=== PATIENT | female | born 1985 | race Caucasian/White ===

== ENCOUNTER → 2016-12-27 | Outpatient (CLI) | payer BC ==
[~2016-12-27] MED LIST: ADVIN25050 INH; ALBUAER2; AZEL0.056; BNTUNK; CLR10 PO; DTR/5 PO; ESCI1TAB10 PO; ETONMIS VAGRING; FLNIN/; PRVHFAIN INH
--- NOTE | 2016-12-27 16:08 | DIAGNOSTIC IMAGING REPORT ---
FUSION CT SINUSES W/O HISTORY: J30.9 Allergic rhinitis PATIENT WITH LEFT SEPTAL DEVIATION AND BI TECHNIQUE: Multiaxial CT images of the sinuses were performed and reformatted in the coronal plane without intravenous contrast. COMPARISON STUDY: None. FINDINGS: The frontal sinuses are clear. There is moderate mucosal thickening and a small amount of bubbly secretions seen within the right maxillary sinus. There is mild mucosal thickening and a small fluid level within the left maxillary sinus. There are few partially opacified ethmoid air cells. Minimal mucosal thickening within the sphenoid sinuses. The mastoid air cells are clear. A few small areas of nodular thickening within the nasal cavity abutting the middle and inferior turbinates. These measure up to 8 mm in size and favor polyps. The visualized brain parenchyma and orbits are unremarkable. The pterygopalatine fossa are within normal limits. Left nasal septal deviation. Partial opacification of the bilateral ethmoid infundibulum. The lamina papyracea and orbital floors are intact. Small left-sided jacob bullosa. IMPRESSION: 1. Mild acute on chronic maxillary sinusitis. 2. Left nasal septal deviation. 3. A few subcentimeter soft tissue nodules within the nasal cavity abutting the turbinates. These favor polyps. Electronically signed by: Larry Lopez M.D. 12/27/2016 4:06 PM Dictated Date/Time: 12/27/2016 3:57 PM
== END | disposition home or self-care (01) ==
LOC: C.CTS 15:03
DX: J30.9 Allergic rhinitis, unspecified (principal); J34.2 Deviated nasal septum; R93.8 Abnormal findings on diagnostic imaging of other specified body structures

== ENCOUNTER → 2017-01-31 | Outpatient (CLI) | payer BC ==
[2017-01-31 18:08] LABS: BASO % 0.7 %; BASO ABS # 0.06 K/uL (0-0.2); COMPLETE YES; EOS % 6.2 %; HEMATOCRIT 44.9 % (37-47); IG% 0.3 %; LYMPH % 37.4 %; LYMPH ABS # 3.32 K/uL (1.2-3.4); MEAN CELL VOLUME 91.1 fL (80-100); MEAN CORPUSCULAR HEMOGLOBIN 30.4 pg (25-34); MEAN CORPUSCULAR HGB CONC 33.4 g/dl (32-36); MEAN PLATELET VOLUME 10.3 fL (7.4-10.4); MONO % 9.7 %; NEUT % 45.7 %; PLATELET COUNT 435 K/uL (130-400); RED BLOOD COUNT 4.93 M/uL (4.2-5.4); WHITE BLOOD COUNT 8.87 K/uL (4.8-10.8)
[2017-01-31 18:16] LABS: PARTIAL THROMBOPLASTIN RATIO 1.1; PROTHROMBIN TIME (PATIENT) 10.7 SECONDS (9.0-12.0)
[2017-01-31 18:27] LABS: POTASSIUM 3.5 mmol/L (3.5-5.1)
== END | disposition home or self-care (01) ==
LOC: C.LAB 17:28
DX: Z01.818 Encounter for other preprocedural examination (principal)

== ENCOUNTER → 2017-02-05 | Day surgery (SDC) | payer BC ==
[2017-02-01 13:50] VITALS: Ht 162.6 cm; Wt 61.4 kg
[~2017-02-05] VITALS: Ht 162.6 cm; Wt 61.4 kg
[~2017-02-05] MED LIST changes: -ALBUAER2; +ATROPINE SULFATE 0.1 MG/ML 5ML SYR IV PRN; -BNTUNK; +CLINDAMYCIN PHOS 150 MG/ML 2 ML VIAL IV SCH; +DEXAMETHASONE SOD INJ 4 MG/ML VIAL ONE; +EpINEphrine INJ 1MG/ML AMP 1 MG/ML AMP ONE; +FENTANYL CITRATE INJ 50 MCG/1 ML 2 ML VIAL IV PRN; +FENTANYL CITRATE INJ 50 MCG/1 ML 2 ML VIAL ONE; +HYDROCODONE/ACETAMOPHEN 5/325MG TAB PO PRN; +LACTATED RINGER'S 1000ML 1,000 ML IV SCH; +LACTATED RINGER'S 1000ML 500 ML IV SCH; +LIDOCAINE 4% MPF SOAK 5 ML = 1 DOSE TOP ONE; +LIDOCAINE HCL 2% 2 ML VIAL (20MG/ML) ONE; +LIDOCAINE/EPINEPHRINE 1% INJ 50 ML VIAL ONE; +MIDAZOLAM HCL 1 MG/ML 2ML VIAL ONE; +ONDANSETRON INJ 2 MG/ML 2 ML VIAL IV PRN; +ONDANSETRON INJ 2 MG/ML 2 ML VIAL ONE; +OXYMETAZOLINE HCL 0.05% NA SPR 15 ML BTL PRN; +OXYMETAZOLINE HCL 0.05% NA SPR 15 ML BTL SCH; +PROMETHAZINE HCL INJ 12.5 MG in SODIUM CHLORIDE 0.9% 50ML 50 ML IV PRN; +PROPOFOL IV EMULSION 10 MG/ML 20 ML VIAL IV ONE; +ROCURONIUM BROMIDE 10 MG/ML 5 ML VIAL ONE; +SCOPOLAMINE 1.5 MG TDSY TD ONE
--- NOTE | 2017-02-05 12:24 | History & Physical Bridge - SC ---
H&P Re-Evaluation Bridge Note: I have examined the patient, reviewed the History & Physical and in the interval since the performance of the History & Physical I have noted the following changes of clinical significance: No changes noted
--- NOTE | 2017-02-05 13:55 | [facility] Operative Report ---
Operative Report Operative Date February 05, 2017. Pre-Operative Diagnosis Chronic Sinusitis, Nasal Septal Deviation, Hypertrophy of Both Inferior Nasal Turbinates Post-Operative Diagnosis Same Procedure(s) Performed Image Guided Bilateral Endoscopic Sinus Surgery, Septoplasty, Bilateral Inferior Turbinate Outfracture and Turbinoplasty Surgeon Dr. Coffman Mine Patrol Surgeon(s) None Estimated Blood Loss 20 ML Findings 1. LEFT NAHEED BULLOSA 2. MODERATELY SEVERE L DNS 3. R>L ITH 4. PURULENCE WITHIN L MAXILLARY SINUS 5. POLYPS WITHIN BILATERAL ETHMOID SINUSES 6. MILD MUCOSAL THICKENING OF R SPHENOID SINUS Specimens None I attest to the content of the Intraoperative Record and any orders documented therein. Any exceptions are noted below.
--- NOTE | 2017-02-05 13:56 | Discharge Instructions ---
Discharge Instructions Date of Service February 05, 2017. Admission Reason for Admission: Chronic Sinusitis Discharge Discharge Diagnosis / Problem: SAME Discharge Goals Goal(s): Therapeutic intervention Activity Recommendations Activity Limitations: as noted below 1. LIGHT ACTIVITY AND NO NOSE BLOWING FOR 2WEEKS 2. NO DRIVING WHILE ON NORCO . Current Hospital Diet Patient's current hospital diet: Discharge Diet Recommended Diet: Regular Diet Procedures Procedures Performed: Image Guided Bilateral Endoscopic Sinus Surgery, Septoplasty, Bilateral Inferior Turbinate Outfracture and Turbinoplasty Pending Studies Studies pending at discharge: no Medical Emergencies . Who to Call and When: Medical Emergencies: If at any time you feel your situation is an emergency, please call 911 immediately. . Non-Emergent Contact Non-Emergency issues call your: Surgeon . . "Provider Documentation" section prepared by Brandyn Coffman. . VTE Core Measure Inpt VTE Proph given/why not?: SCD's, Treatment not indicated
[2017-02-05 14:34] VITALS: TEMP 37.2
[2017-02-05 15:07] VITALS: BP 133/93; PULSE 92; O2SAT 98
--- NOTE | 2017-02-05 15:12 | Anesthesia Progress Nt - [facility] ---
Anesthesia Post Op Note Date & Time February 05, 2017 at 15:12 Vital Signs Pain Intensity: 0 Vital Signs Past 12 Hours Date Time Temp Pulse Resp B/P Pulse Ox O2 Delivery O2 Flow Rate FiO2 02/05/17 15:07 92 16 133/93 98 Room Air 02/05/17 14:34 37.2 92 16 131/91 99 Room Air 02/05/17 14:30 99 20 100 02/05/17 14:27 37.5 02/05/17 14:26 149/91 02/05/17 14:25 96 15 02/05/17 14:25 96 15 100 02/05/17 14:20 109 22 02/05/17 14:20 110 22 141/94 100 02/05/17 14:17 147/98 02/05/17 14:16 160/98 02/05/17 14:15 103 14 100 02/05/17 14:15 104 14 02/05/17 14:11 153/107 02/05/17 14:10 108 22 02/05/17 14:10 107 22 100 02/05/17 14:05 123 16 02/05/17 14:05 125 16 147/101 99 02/05/17 14:01 161/95 02/05/17 14:00 36.7 110 18 159/109 100 Humidified Oxygen 8 Diffusion Mask 02/05/17 14:00 114 159/109 100 02/05/17 14:00 114 02/05/17 10:26 36.9 90 18 118/87 97 Room Air Notes Mental Status: alert / awake / arousable, participated in evaluation Pt Amnestic to Procedure: Yes Nausea / Vomiting: adequately controlled Pain: adequately controlled Airway Patency, RR, SpO2: stable & adequate BP & HR: stable & adequate Hydration State: stable & adequate Anesthetic Complications: no major complications apparent
--- NOTE | 2017-02-05 15:55 | OPERATIVE REPORT ---
DATE OF OPERATION: 02/05/2017 PREOPERATIVE DIAGNOSES: 1. Chronic rhinosinusitis. 2. Left septal deviation. 3. Right greater than left inferior turbinate hypertrophy. POSTOPERATIVE DIAGNOSES: 1. Chronic rhinosinusitis. 2. Left septal deviation. 3. Right greater than left inferior turbinate hypertrophy. PROCEDURES: 1. Image-guided Medtronic fusion bilateral endoscopic sinus surgery consisting of: 1. Left endoscopic jacob bullosa resection. 2. Bilateral maxillary antrostomies. 3. Bilateral complete ethmoidectomies. 4. Right sphenoidotomy. 5. Septoplasty. 6. Bilateral inferior turbinate outfracture and turbinoplasty. SURGEON: Dr. Coffman. ANESTHESIA: General endotracheal. ESTIMATED BLOOD LOSS: 20 mL. FINDINGS: 1. Severe left septal deviation with both cartilaginous and bony deviation. 2. Right greater than left inferior turbinate hypertrophy. 3. Left middle turbinate jacob bullosa. 4. Polyps within the bilateral maxillary sinuses. 5. Purulence within the left maxillary sinus. 6. Mild mucosal thickening involving the right sphenoid sinus. SPECIMENS: None. COMPLICATIONS: None. INDICATIONS FOR THE PROCEDURE: The patient is a 31-year-old female with a history of chronic rhinosinusitis which has been unresponsive to maximum medical therapy. Posttreatment CT scan of the sinuses revealed bilateral maxillary, ethmoid, right sphenoid sinusitis along with left septal deviation, right greater than left inferior turbinate hypertrophy, and a left jacob bullosa. She presents for the above-mentioned procedures on an outpatient elective basis. DESCRIPTION OF PROCEDURE: After informed consent had been obtained from the patient, the patient was wheeled to the operating room and placed on the operating table in the supine position. Monitors were placed. After induction of general endotracheal anesthesia, the patient was prepped in usual fashion for image guided endoscopic sinus surgery. The [employer] navigation headset was placed over the forehead and was registered, verified and calibrated and used for the sphenoid sinus portion of the procedure primarily. Lidocaine and epinephrine pledgets were placed in the bilateral middle meati. The left pledget was removed first. A freer elevator was used to medialize the left middle turbinate. The left middle turbinate and lateral nasal wall were then injected with 1% lidocaine with 1:100,000 epinephrine. The pledget was replaced in the left middle meatus. The right side was then addressed in a similar fashion. The left-sided pledget was removed. A sickle knife was used to incise the left middle turbinate longitudinally and the lateral half of the middle turbinate was removed in order to perform an endoscopic jacob bullosa resection. An uncinatectomy was then performed using a freer elevator, straight Genaro-Cut forceps, and powered instrumentation. The natural ostium of the left maxillary sinus was identified and this was enlarged anteriorly, inferiorly, and posteriorly using backbiting forceps and powered instrumentation. An endoscopic complete ethmoidectomy was then performed using powered instrumentation. Intraoperative findings were purulence within the left maxillary sinus as well as polyposis within the anterior and posterior ethmoid sinus on the left hand side. A lidocaine and epinephrine pledget was then placed into the left ethmoid cavity. The right side was then addressed in a similar fashion except there was no jacob bullosa resection done on this side. A transnasal approach to the sphenoid sinus was then undertaken and using image guidance, a straight Arias suction was inserted into the right sphenoid sinus ostia. The sphenoid sinus ostia was enlarged medially and inferiorly using powered instrumentation under image guidance. There was mild mucosal thickening within the right sphenoid sinus and then similarly there was polyposis within the right ethmoid sinuses anteriorly and posteriorly. There was no purulence noted. All of the pledgets were then removed. The nasal septum was injected with 1% lidocaine with 1:100,000 epinephrine. A #15 scalpel was used to make a left hemitransfixion incision through which the left-sided mucoperichondrial and mucoperiosteal flap was elevated. A #15 scalpel was then used to incise the quadrangular cartilage with care to preserve a 1.5 cm dorsal and caudal strut and the right-sided mucoperichondrial and mucoperiosteal flap was elevated through this cartilaginous incision. A Jairo silver knife was then used to remove the deviated portions of the quadrangular cartilage which was impinging on the airway anteriorly on the left hand side. A V shaped osteotome, mallet, and Kiarra forceps was then used to remove a large bony septal spur which was impinging on the airway posteriorly on the left hand side. The septal cavity was then suctioned. The left hemitransfixion incision was closed with several simple interrupted 4-0 chromic sutures. A 4-0 plain gut suture on a Kaushik needle was then used to perform a quilting stitch of the mucoperichondrial and mucoperiosteal flaps bilaterally to help prevent septal hematoma. A Melchor elevator was then used to infracture and subsequently outfracture the inferior turbinates bilaterally. Inferior turbinates were injected with 1% lidocaine with 1:100,000 epinephrine. A 2.0 mm turbinate blade using powered instrumentation was then used to perform bilateral inferior turbinoplasties in a submucosal fashion. The sinonasal cavities and nasopharynx were then suctioned. Merogel was then placed into the bilateral ethmoid sinuses/middle meati. An orogastric tube was placed and the stomach was suctioned free of air and stomach contents. This marked the end of the case. The patient tolerated the procedure well and there were no apparent complications. The patient was extubated and transferred to recovery room in stable condition. I attest to the content of the Intraoperative Record and any orders documented therein. Any exceptio ns are noted below.
== END | disposition home or self-care (01) ==
LOC: X.SURG 10:10
DX: J32.0 Chronic maxillary sinusitis (principal); J32.2 Chronic ethmoidal sinusitis; J32.3 Chronic sphenoidal sinusitis; J34.2 Deviated nasal septum; J34.3 Hypertrophy of nasal turbinates; J33.9 Nasal polyp, unspecified; J45.909 Unspecified asthma, uncomplicated

== ENCOUNTER → 2017-11-01 | Outpatient (CLI) | payer OTHER ==
[~2017-11-01] MED LIST changes: -ATROPINE SULFATE 0.1 MG/ML 5ML SYR IV PRN; -CLINDAMYCIN PHOS 150 MG/ML 2 ML VIAL IV SCH; -DEXAMETHASONE SOD INJ 4 MG/ML VIAL ONE; -EpINEphrine INJ 1MG/ML AMP 1 MG/ML AMP ONE; -FENTANYL CITRATE INJ 50 MCG/1 ML 2 ML VIAL IV PRN; -FENTANYL CITRATE INJ 50 MCG/1 ML 2 ML VIAL ONE; -FLNIN/; -HYDROCODONE/ACETAMOPHEN 5/325MG TAB PO PRN; -LACTATED RINGER'S 1000ML 1,000 ML IV SCH; -LACTATED RINGER'S 1000ML 500 ML IV SCH; -LIDOCAINE 4% MPF SOAK 5 ML = 1 DOSE TOP ONE; -LIDOCAINE HCL 2% 2 ML VIAL (20MG/ML) ONE; -LIDOCAINE/EPINEPHRINE 1% INJ 50 ML VIAL ONE; -MIDAZOLAM HCL 1 MG/ML 2ML VIAL ONE; -ONDANSETRON INJ 2 MG/ML 2 ML VIAL IV PRN; -ONDANSETRON INJ 2 MG/ML 2 ML VIAL ONE; -OXYMETAZOLINE HCL 0.05% NA SPR 15 ML BTL PRN; -OXYMETAZOLINE HCL 0.05% NA SPR 15 ML BTL SCH; -PROMETHAZINE HCL INJ 12.5 MG in SODIUM CHLORIDE 0.9% 50ML 50 ML IV PRN; -PROPOFOL IV EMULSION 10 MG/ML 20 ML VIAL IV ONE; -ROCURONIUM BROMIDE 10 MG/ML 5 ML VIAL ONE; -SCOPOLAMINE 1.5 MG TDSY TD ONE
[2017-11-01 17:35] LABS: HEMATOCRIT 41.1 % (37-47); HEMOGLOBIN 14.2 g/dL (12.0-16.0); MEAN CELL VOLUME 91.1 fL (80-100); MEAN CORPUSCULAR HEMOGLOBIN 31.5 pg (25-34); MEAN CORPUSCULAR HGB CONC 34.5 g/dl (32-36); MEAN PLATELET VOLUME 10.5 fL (7.4-10.4); PLATELET COUNT 353 K/uL (130-400); RED CELL DISTRIBUTION WIDTH CV 12.5 % (11.5-14.5); RED CELL DISTRIBUTION WIDTH SD 41.8 fL (36.4-46.3)
[2017-11-01 18:04] LABS: BLOOD UREA NITROGEN 8 mg/dl (7-18); CALCIUM 9.4 mg/dl (8.5-10.1); CARBON DIOXIDE 27 mmol/L (21-32); CREATININE 0.73 mg/dl (0.60-1.20); GLUCOSE 80 mg/dl (70-99); POTASSIUM 3.6 mmol/L (3.5-5.1); SODIUM 137 mmol/L (136-145)
== END | disposition home or self-care (01) ==
LOC: C.LAB1850 16:29
PROVIDERS: ATTEND Internal Medicine
DX: Z13.220 Encounter for screening for lipoid disorders (principal); F32.9 Major depressive disorder, single episode, unspecified

== ENCOUNTER → 2017-11-27 | Outpatient (CLI) | payer OTHER | END | disposition home or self-care (01) | LOC: C.LAB1850 07:11 | PROVIDERS: ATTEND Internal Medicine | DX: F32.9 Major depressive disorder, single episode, unspecified (principal); Z13.220 Encounter for screening for lipoid disorders ==

== ENCOUNTER 2019-07-12 01:17 | Inpatient (IN) ==
[2019-07-12] MEDS ORDERED: methylPREDNISolone 125 MG/2 ML VIAL IV STA (01:34)
[2019-07-12] MEDS ORDERED: MAGNESIUM SULFATE / D5W 1 GM/100 ML BAG IV ONE (01:34)
[2019-07-12] MEDS ORDERED: ALBUT/IPRATROP 3MG/0.5MG NEB 3 ML VIAL NEB ONE ×2 (01:34→06:08)
[2019-07-12] MEDS ORDERED: LORazepam 0.25 MG/0.5 ML VIAL IV STA (02:06)
[2019-07-12] MEDS ORDERED: SODIUM CHLORIDE 0.9% 1000ML 1,000 ML IV SCH (02:15)
[2019-07-12 05:10] LABS: Hematocrit (blood only) 38.3 % (37-47); Hemoglobin 12.6 g/dL (12.0-16.0); Mean Corpuscular Hemoglobin 31.3 pg (25-34); Mean Corpuscular Hgb Conc 32.9 g/dL (32-36); Mean Corpuscular Volume 95.3 fL (80-100); Mean Platelet Volume 10.8 fL (7.4-10.4); Platelet Count 398 K/uL (130-400); RDW Coefficient of Variation 12.7 % (11.5-14.5); RDW Standard Deviation 43.8 fL (36.4-46.3); Red Blood Count 4.02 M/uL (4.2-5.4); White Blood Count 13.23 K/uL (4.8-10.8)
[2019-07-12 05:15] LABS: D Dimer 220 ug/L FEU (0-500)
[2019-07-12 05:19] LABS: Alanine Aminotransferase 14 U/L (12-78); Albumin Level 3.2 gm/dl (3.4-5.0); Aspartate Aminotransferase 7 U/L (15-37); BUN Creatinine Ratio 8.2 (10-20); Blood Urea Nitrogen 7 mg/dl (7-18); Calcium 8.4 mg/dl (8.5-10.1); Carbon Dioxide 23 mmol/L (21-32); Chloride 109 mmol/L (98-107); Creatinine Clr Calc Pharmacy 89.5 ml/min; Est GFR (African American) 99.4; Est GFR (Non-African American) 85.7; Glucose 100 mg/dl (70-99); Potassium 3.4 mmol/L (3.5-5.1); Sodium 139 mmol/L (136-145)
[2019-07-12 05:23] LABS: Albumin Globulin Ratio 0.8 (0.9-2); Alkaline Phosphatase 114 U/L (45-117); Bilirubin,Total 0.2 mg/dl (0.2-1); Globulin 3.8 gm/dl (2.5-4.0); Troponin I < 0.015 ng/ml (0-0.045)
[2019-07-12] MEDS ORDERED: ALBUT/IPRATROP 3MG/0.5MG NEB 3 ML VIAL NEB STA (05:26)
[2019-07-12 05:31] LABS: ALC (manual) 4.76 K/uL (1.2-3.4); ANC (manual) 6.62 K/uL (1.4-6.5); Basophils # (manual) 0.24 K/uL (0-0.2); Basophils % (manual) 1.8 %; Eosinophils # (manual) 0.81 K/uL (0-0.5); Eosinophils % (manual) 6.1 %; Lymphocytes # (manual) 4.76 K/uL (1.2-3.4); Monocytes # (manual) 0.81 K/uL (0.11-0.59); Monocytes % (manual) 6.1 %; Neutrophils # (manual) 6.62 K/uL (1.4-6.5)
--- NOTE | 2019-07-12 06:52 | XRay Report ---
XR chest 1V portable CLINICAL HISTORY: sob dyspnea COMPARISON STUDY: 06/07/2019 FINDINGS: The bones soft tissues and hemidiaphragms are normal. The cardiomediastinal silhouette is n ormal. The lungs are clear. The pulmonary vasculature is normal. IMPRESSION: Negative chest. The above report was generated using voice recognition software. It may contain grammatical, syntax or spelling errors. Electronically signed by: Tai Owen M.D. 07/12/2019 6:50 AM
[2019-07-12] MEDS ORDERED: ACETAMINOPHEN 325 MG TAB PO PRN (08:39)
[2019-07-12] MEDS ORDERED: NICOTINE 14 MG/24 HR PATCH TD SCH (09:00)
[2019-07-12] MEDS: ALBUT/IPRATROP 3MG/0.5MG NEB 3 ML VIAL NEB SCH ×4 (10:54→23:11)
[2019-07-12] MEDS: DULOXETINE HCL 60 MG CAP PO SCH (11:21)
[2019-07-12] MEDS: OXYBUTYNIN CHLORIDE 5 MG TAB PO SCH ×2 (11:21→20:52)
[2019-07-12] MEDS: DULOXETINE HCL 30 MG CAP PO SCH (11:21)
[2019-07-12] MEDS: LORATADINE 10 MG TAB PO SCH (11:22)
[2019-07-12] MEDS: FLUTICASONE/SALMETEROL 250/50 (ADVAIR) 14 PUFF/1 INHALER INH SCH ×2 (11:22→20:52)
[2019-07-12] MEDS: methylPREDNISolone 40 MG in SYRINGE 0 ML IV SCH (13:22)
--- NOTE | 2019-07-12 17:46 | History & Physical Report ---
Date of Service July 12, 2019 Assessment & Plan (1) Asthma exacerbation: Due to smoking/vaping and not being on any maintenance medication. - Steroids - DuoNebs standing and PRN - Hold abx given clear CXR - BiPap PRN, though she has not needed it since coming from the ED - Restart home inhaler to give to her on discharge - Loratadine - CM for financial assistance (2) Tachycardia: Sinus tachycardia due to anxiety and albuterol. - Monitor (3) Bipolar 1 disorder: No SI/HI at present. - Continue home meds (4) DVT prophylaxis: SCDs - Low DVT risk per admission calculator History of Present Illness Primary Care Provider: Ori Lira MD 34yo F w/ hx of asthma and bipolar who presents with asthma exacerbation. She reports she has had a gradually increasing asthma exacerbation for at least 3-4 days, but that it got significantly worse at 9pm last night. At baseline, she uses her nebulizer 3-4 times per day, but after 9pm was using it almost every hour without relief of her asthma. In the ED, she had 2 hour-long treatments and was put on BiPap with improvement of her symptoms. She denies any sick contacts, denies any new cats/dogs exposure, denies any change in living arrangements. However, she does admit that she smokes 1- 2x/month and also vapes 1-2x/month when she is socializing with friends and that she did this at the beginning of her asthma exacerbation a few days ago. Additionally, she reports she cannot afford her Advair and has not been taking any maintenance asthma medication. She does not have a marketing recruiter; just using her PCP for her asthma care. Reports no fevers/chills, chest pain, abdominal pain, nausea, or vomiting. Allergies Allergy/AdvReac Type Severity Reaction Status Date / Time Penicillins Allergy Intermediate RASH Verified 07/12/19 02:12 Sulfa (Sulfonamide Allergy Intermediate RASH Verified 07/12/19 02:12 Antibiotics) morphine Allergy Mild RASH Verified 07/12/19 02:12 sertraline [From Zoloft] Allergy Unknown Verified 07/12/19 02:12 amoxicillin AdvReac Intermediate RASH Verified 07/12/19 02:12 Home Medications Home Medications Medication Instructions Recorded Confirmed Type albuterol sulfate [Ventolin HFA] 2 puff INHALATION DIRECTED PRN 02/01/17 07/12/19 History #0 azelastine 2 spray INTRANASAL HS #0 02/01/17 07/12/19 History etonogestrel-ethinyl estradiol 1 vag ring PV DIRECTED #1 ea 04/08/19 07/12/19 History 0.12 mg -0.015 mg/24 hr vaginal ring loratadine 10 mg tablet 10 mg PO DAILY tab 04/08/19 07/12/19 History risperidone 1 mg tablet 2 mg PO HS #60 tab 04/08/19 07/12/19 History oxybutynin chloride 5 mg tablet 5 mg PO BID #60 tab 05/02/19 07/12/19 Rx albuterol sulfate 1.25 mg INH DIRECTED PRN 06/07/19 07/12/19 History clonazepam 1 mg PO HS 06/07/19 07/12/19 History duloxetine 30 mg PO DAILY 06/07/19 07/12/19 History duloxetine 60 mg PO DAILY 06/07/19 07/12/19 History Past Med/Surg History Medical History Abnormal weight gain Subjective tinnitus Hyperhidrosis Bipolar 1 disorder Asthma Allergic rhinitis Acne History of anxiety History of chicken pox History of chronic constipation History of pelvic mass Surgical History H/O sinus surgery History of knee surgery S/P nasal surgery S/P wisdom tooth extraction Family History Mother Endometriosis Family/Other Asthma Hypertension Stroke Social History Preferred Language: Greek Communication Ability: Effective Beliefs That Will Affect Care: None Current Living Situation: Alone Other Information That Helps Us Care for You: No Feels Safe at Home: Yes Safety Concerns: Feels Safe At This Time Smoking Status: Never smoker Tobacco Type: e-cigarettes ; Do You Dip or Chew Tobacco: No ; Hx Alcohol Use: Yes Alcohol type: beer, wine and hard liquor Hx Substance Use: Yes substance use type: marijuana Last Used Substance: Days (ago) Last Used Substance Other:: 07/11/19 Dental Care, Regularly: Yes Physical Activity Frequency: Does not Exercise Seatbelt Use: always Sunscreen Use: Yes Review of Systems Review of Systems: All systems reviewed & are unremarkable except as noted in HPI & below Physical Exam Constitutional: WD/WN, vitals as above Eyes: EOM intact bilaterally; no conjunctival abnormality ENMT: external ear and nose normal, oropharynx normal Neck: trachea midline, no thyromegaly normal visual inspection Respiratory: + respiratory distress, + labored breathing and + tachypneic; no cough Auscultation: + wheezes (Inspiratory and expiratory) Cardiovascular: Rate/Rhythm: regular rhythm and + tachycardic Heart Sounds: normal S1 and normal S2 Vessels: no JVD Extremities: no edema Gastrointestinal (Abdomen): Inspection/Auscultation: abdomen normal to inspection; abdomen not distended Musculoskeletal: no cyanosis or clubbing, extremities motor strength 5/5 Skin: no rashes, warm and dry Neurologic: moves all extremities and awake Psychiatric: Orientation: alert, oriented to person and cooperative Results & Data Vital Signs (Past 12 Hours) Vital Signs Temp Pulse Pulse Resp BP BP BP 07/12/19 16:26 121 H 07/12/19 15:28 36.9 C 102 H 19 142/85 H 07/12/19 15:25 115 H 18 07/12/19 10:58 36.9 C 122 H 30 H 117/71 07/12/19 10:54 124 H 22 07/12/19 08:40 37 C 126 H 22 123/82 07/12/19 08:00 126 H 22 130/81 07/12/19 07:30 127 H 24 129/86 07/12/19 07:01 126 H 19 07/12/19 07:00 123 H 18 124/72 07/12/19 06:39 120 H 16 122/83 07/12/19 06:38 119 H 15 122/83 07/12/19 06:35 122 H 15 07/12/19 06:30 122 H 14 07/12/19 06:10 124 H 15 07/12/19 06:00 128 H 24 07/12/19 05:40 118 H 24 Pulse Ox 07/12/19 16:26 07/12/19 15:28 98 07/12/19 15:25 98 07/12/19 10:58 96 07/12/19 10:54 87 L 07/12/19 08:40 98 07/12/19 08:00 93 07/12/19 07:30 98 07/12/19 07:01 99 07/12/19 07:00 97 07/12/19 06:39 99 07/12/19 06:38 99 07/12/19 06:35 100 07/12/19 06:30 98 07/12/19 06:10 99 07/12/19 06:00 95 07/12/19 05:40 92 PG Care Time/CCT Total # of Minutes Spent Total Time Spent with Patient: Total time spent is greater than 50% in coordination of care (as documented) at patient's floor/unit and/or counseling patient: (1) Asthma exacerbation Asthma persistence: persistent Asthma severity: unspecified severity Qualified Code(s): J45.901 - Unspecified asthma with (acute) exacerbation
[2019-07-12] MEDS ORDERED: guaiFENesin 600 MG TABCR PO STA (20:10)
[2019-07-12] MEDS ORDERED: BENZONATATE 100 MG CAPSULE PO ONE (20:12)
[2019-07-12] MEDS ORDERED: clonazePAM 1 MG TAB PO SCH (21:00)
[2019-07-12] MEDS ORDERED: risperiDONE 2 MG TABLET PO SCH (21:00)
[2019-07-12] MEDS: BENZONATATE 100 MG CAPSULE PO SCH (21:01)
[2019-07-12] MEDS: FLUTICASONE PROPIONATE NA SPR 16 GM BTL SCH (22:52)
[2019-07-13] MEDS: methylPREDNISolone 40 MG in SYRINGE 0 ML IV SCH ×2 (02:32→13:48)
[2019-07-13] MEDS: ALBUT/IPRATROP 3MG/0.5MG NEB 3 ML VIAL NEB SCH ×2 (03:07→07:12)
[2019-07-13 06:12] LABS: Hematocrit (blood only) 35.7 % (37-47); Hemoglobin 11.8 g/dL (12.0-16.0); Mean Corpuscular Hemoglobin 31.3 pg (25-34); Mean Corpuscular Hgb Conc 33.1 g/dL (32-36); Mean Corpuscular Volume 94.7 fL (80-100); Mean Platelet Volume 10.5 fL (7.4-10.4); Platelet Count 387 K/uL (130-400); RDW Standard Deviation 45.2 fL (36.4-46.3); Red Blood Count 3.77 M/uL (4.2-5.4)
[2019-07-13 06:56] LABS: BUN Creatinine Ratio 11.4 (10-20); Calcium 8.8 mg/dl (8.5-10.1); Est GFR (African American) 118.6; Est GFR (Non-African American) 102.3; Magnesium 2.1 mg/dl (1.8-2.4)
[2019-07-13 06:58] LABS: Phosphorus 2.7 mg/dl (2.5-4.9)
[2019-07-13] MEDS: DULOXETINE HCL 30 MG CAP PO SCH (08:07)
[2019-07-13] MEDS: LORATADINE 10 MG TAB PO SCH (08:07)
[2019-07-13] MEDS: OXYBUTYNIN CHLORIDE 5 MG TAB PO SCH (08:07)
[2019-07-13] MEDS: DULOXETINE HCL 60 MG CAP PO SCH (08:07)
[2019-07-13] MEDS: FLUTICASONE PROPIONATE NA SPR 16 GM BTL SCH (08:08)
[2019-07-13] MEDS: FLUTICASONE/SALMETEROL 250/50 (ADVAIR) 14 PUFF/1 INHALER INH SCH (08:08)
[2019-07-13] MEDS: BENZONATATE 100 MG CAPSULE PO SCH ×2 (08:29→13:49)
[2019-07-13] MEDS ORDERED: guaiFENesin 600 MG TABCR PO SCH (09:00)
[2019-07-13] MEDS ORDERED: ALBUT/IPRATROP 3MG/0.5MG NEB 3 ML VIAL NEB ONE (13:00)
--- NOTE | 2019-07-13 17:28 | Discharge Summary ---
Date of Service July 13, 2019 Admission HPI Per Admitting Provider 34yo F w/ hx of asthma and bipolar who presents with asthma exacerbation. She reports she has had a gradually increasing asthma exacerbation for at least 3-4 days, but that it got significantly worse at 9pm last night. At baseline, she uses her nebulizer 3-4 times per day, but after 9pm was using it almost every hour without relief of her asthma. In the ED, she had 2 hour-long treatments and was put on BiPap with improvement of her symptoms. She denies any sick contacts, denies any new cats/dogs exposure, denies any change in living arrangements. However, she does admit that she smokes 1- 2x/month and also vapes 1-2x/month when she is socializing with friends and that she did this at the beginning of her asthma exacerbation a few days ago. Additionally, she reports she cannot afford her Advair and has not been taking any maintenance asthma medication. She does not have a media operator; just using her PCP for her asthma care. Reports no fevers/chills, chest pain, abdominal pain, nausea, or vomiting. Principal Diagnosis Asthma exacerbation Discharge Exam Constitutional WD/WN, vitals as above Eyes EOM intact bilaterally; no conjunctival abnormality ENMT external ear and nose normal, oropharynx normal Neck trachea midline, no thyromegaly normal visual inspection Respiratory + respiratory distress, + labored breathing and + tachypneic; no cough Auscultation: no wheezes (Inspiratory and expiratory) Cardiovascular Rate/Rhythm: regular rhythm and + tachycardic Heart Sounds: normal S1 and normal S2 Vessels: no JVD Extremities: no edema Gastrointestinal (Abdomen) Inspection/Auscultation: abdomen normal to inspection; abdomen not distended Musculoskeletal no cyanosis or clubbing, extremities motor strength 5/5 Skin no rashes, warm and dry Neurologic moves all extremities and awake Psychiatric Orientation: alert, oriented to person and cooperative Discharge Data Allergies Allergy/AdvReac Type Severity Reaction Status Date / Time Penicillins Allergy Intermediate RASH Verified 07/12/19 02:12 Sulfa (Sulfonamide Allergy Intermediate RASH Verified 07/12/19 02:12 Antibiotics) morphine Allergy Mild RASH Verified 07/12/19 02:12 sertraline [From Zoloft] Allergy Unknown Verified 07/12/19 02:12 amoxicillin AdvReac Intermediate RASH Verified 07/12/19 02:12 Consultations 07/12/19 07:44 ED Decision to Admit Stat 07/12/19 08:39 Consult Case Management - Discharge Planning Routine 07/12/19 09:16 Consult Behavioral Health Liaison Routine Hospital Course (1) Asthma exacerbation: Due to smoking/vaping and not being on any maintenance medication. - Significantly improved by 07/13 and patient requested to go home. - Discharged on steroids x 5 more days. CM assisted with Advair which was able to be discounted down to $43/month which the patient thought was reasonable. Follow up with PCP. Consider pulm follow up outpatient. (2) Tachycardia: Sinus tachycardia due to anxiety and albuterol. - Improved by discharge. (3) Bipolar 1 disorder: No SI/HI at present. - Continue home meds (4) DVT prophylaxis: SCDs - Low DVT risk per admission calculator Total Time Total Time Spent Total Time Spent (In Minutes): 35 Discharge Plan Discharge Items Patient Disposition: Home - Self-Care Reason For Visit: ASTHMA EXACERBATION Discharge Diagnosis: Same Activity: Resume your previous activity Non-emergency contact: Primary Care Provider Call non-emergency contact if: your symptoms worsen and your temperature is above 101.5 Follow-up/Referrals: Ori Lira MD [Primary Care Provider] - Diet: Regular Addtl Attending Provider Instructions: Please take your first steroid dose tomorrow morning. Then every morning after that until gone. Follow up with your PCP in 1-2 weeks. If you are using your nebulizer or "rescue" inhaler more than 1-2 times per week, please see Dr. Lira to discuss other medications for your asthma. Pending Studies at Discharge: No Stand-Alone Forms: My [facility] Medications and DC Order Prescriptions: New fluticasone propion-salmeterol [Advair Diskus] 250-50 mcg/dose Blister With Device 1 puffs inhalation BID Qty: 60 RF: 1 prednisone 50 mg tablet 50 mg PO DAILY 5 Days Qty: 5 RF: 0 albuterol sulfate 90 mcg/actuation HFA aerosol inhaler 2 puffs INH Q6H PRN (Reason: shortness of breath or wheezing) Qty: 6.7 RF: 0 Continued azelastine 137 mcg (0.1 %) Aerosol,[place] 2 spray INTRANASAL HS Qty: 0 RF: 0 oxybutynin chloride 5 mg tablet 5 mg PO BID Qty: 60 RF: 5 loratadine 10 mg tablet 10 mg PO DAILY RF: 0 risperidone 1 mg tablet 2 mg PO HS Qty: 60 RF: 0 etonogestrel-ethinyl estradiol 0.12-0.015 mg/24 hr ring 1 vag ring PV DIRECTED Qty: 1 RF: 0 clonazepam 0.5 mg tablet 1 mg PO HS RF: 0 duloxetine 30 mg capsule,delayed release(DR/EC) 30 mg PO DAILY RF: 0 duloxetine 60 mg capsule,delayed release(DR/EC) 60 mg PO DAILY RF: 0 albuterol sulfate 2.5 mg /3 mL (0.083 %) solution for nebulization 1.25 mg INH DIRECTED PRN (Reason: shortness of breath or wheezing) RF: 0 Discharge Orders: Discharge Order (Routine); Ordered 07/13/19 Ordered By: Tim York/Other Patient Handouts: Asthma, Triggers Asthma, Asthma Action Plan Admission Data Admit Date/Time: 07/12/19 07:45 Attending Provider: Tim Villasenor Admit Provider: Tim Villasenor Primary Care Provider: Ori Lira Other Providers: Tim Villasenor Other Interventions: Discharge Summary Assessment (RN) Last Done: 07/13/19 13:53 DC Date/Time DO NOT enter until pt leaves facility: 07/13/19 14:17
--- NOTE | 2019-07-14 01:35 | Emergency Department Note ---
Entered by Miguel Pretty acting as a scribe for Lashawn José DO History of Present Illness General Chief complaint: Asthma Stated complaint: ASHTHMA ATTACK Time Seen by Provider: 07/12/19 01:34 Source: patient History of Present Illness Onset (ago): hour(s) (prior to arrival) Location: mouth (asthma) Pain Consistency: + other (worsening) Maximum Pain Intensity: 9 Relieved By: + none Associated symptoms: + denies other symptoms (stuffy nose, runny nose) and + cough (with phlegm production); no fever/chills The patient is a 34 year old F who presents to the Emergency Room with complaints of worsening asthma that started prior to arrival. The patient states that she tried 4 home medications and a rescue inhaler to no relief. She states that her seasonal allergies trigger her asthma. She notes that she was hospitalized due to her asthma when she was younger, but adds that she got better as she grew up. She states that she was in the ED, a month ago, due to her asthma. She notes that she has never had magnesium before, but adds that she is usually put on steroids. She state that she is currently experiencing coughing with phlegm production. She denies experiencing a fever, stuffy nose, and a runny nose. She denies being around anybody sick. She notes that she has a history of mental health issues. She adds that her father and sister also had asthma. Home Medications Home Medications Medication Instructions Recorded Confirmed Type azelastine 2 spray INTRANASAL HS #0 02/01/17 07/12/19 History etonogestrel-ethinyl estradiol 1 vag ring PV DIRECTED #1 ea 04/08/19 07/12/19 History 0.12 mg -0.015 mg/24 hr vaginal ring loratadine 10 mg tablet 10 mg PO DAILY tab 04/08/19 07/12/19 History risperidone 1 mg tablet 2 mg PO HS #60 tab 04/08/19 07/12/19 History oxybutynin chloride 5 mg tablet 5 mg PO BID #60 tab 05/02/19 07/12/19 Rx albuterol sulfate 1.25 mg INH DIRECTED PRN 06/07/19 07/12/19 History clonazepam 1 mg PO HS 06/07/19 07/12/19 History duloxetine 30 mg PO DAILY 06/07/19 07/12/19 History duloxetine 60 mg PO DAILY 06/07/19 07/12/19 History albuterol sulfate 2 puffs INH Q6H PRN #6.7 gm 07/13/19 Rx fluticasone propion-salmeterol 1 puffs INHALATION BID #60 ea 07/13/19 Rx [Advair Diskus] prednisone 50 mg PO DAILY 5 Days #5 tab 07/13/19 Rx Allergies Allergy/AdvReac Type Severity Reaction Status Date / Time Penicillins Allergy Intermediate RASH Verified 07/12/19 02:12 Sulfa (Sulfonamide Allergy Intermediate RASH Verified 07/12/19 02:12 Antibiotics) morphine Allergy Mild RASH Verified 07/12/19 02:12 sertraline [From Zoloft] Allergy Unknown Verified 07/12/19 02:12 amoxicillin AdvReac Intermediate RASH Verified 07/12/19 02:12 Past Med/Surg History Family History Mother Endometriosis Family/Other Asthma Hypertension Stroke Social History Preferred Language: Japanese Communication Ability: Effective Beliefs That Will Affect Care: None Current Living Situation: Alone Feels Safe at Home: Yes Smoking Status: Never smoker Tobacco Type: e-cigarettes ; Hx Alcohol Use: Yes Alcohol type: beer, wine and hard liquor Hx Substance Use: Yes substance use type: marijuana Last Used Substance: Days (ago) Dental Care, Regularly: Yes Physical Activity Frequency: Does not Exercise Seatbelt Use: always Sunscreen Use: Yes Review of Systems See HPI for pertinent positives & negatives. and A total of 10 systems reviewed and were otherwise negative Physical Exam Vital Signs Vital Signs - 24 hr 07/12/19 01:20 07/12/19 01:26 07/12/19 01:30 Temperature 97.9 F Temperature Source Oral Sepsis Recent Fever Within 48 Hours No Sepsis New/Unexplained Change in Mental Status No Sepsis Action Taken by Nursing No Action Required Pulse Rate 123 H 127 H 118 H Pulse Rate [Right Finger] Pulse Rate from SpO2 Sensor 127 H 116 H Pulse Rhythm [Right Finger] Pulse Strength [Right Finger] Respiratory Rate 36 H 21 21 Respiratory Effort / Characteristics Respiratory Depth Respiratory Pattern Blood Pressure 139/87 127/92 141/100 H Blood Pressure [Right Arm] Blood Pressure Mean 104 103 113 Blood Pressure Mean [Right Arm] Blood Pressure Position [Right Arm] Pulse Oximetry 92 95 93 Oxygen Delivery Method Room Air Fraction of Inspired Oxygen 07/12/19 01:42 07/12/19 01:44 07/12/19 01:53 Temperature Temperature Source Sepsis Recent Fever Within 48 Hours Sepsis New/Unexplained Change in Mental Status Sepsis Action Taken by Nursing Pulse Rate 127 H Pulse Rate [Right Finger] 121 H Pulse Rate from SpO2 Sensor 128 H Pulse Rhythm [Right Finger] Pulse Strength [Right Finger] Respiratory Rate 28 H 17 Respiratory Effort / Characteristics Non-Labored Short of Breath Respiratory Depth Respiratory Pattern Blood Pressure 127/89 Blood Pressure [Right Arm] Blood Pressure Mean 101 Blood Pressure Mean [Right Arm] Blood Pressure Position [Right Arm] Pulse Oximetry 93 93 98 Oxygen Delivery Method Room Air Room Air Fraction of Inspired Oxygen 07/12/19 02:00 07/12/19 02:30 07/12/19 02:31 Temperature Temperature Source Sepsis Recent Fever Within 48 Hours Sepsis New/Unexplained Change in Mental Status Sepsis Action Taken by Nursing Pulse Rate 128 H 144 H Pulse Rate [Right Finger] 140 H Pulse Rate from SpO2 Sensor 128 H 143 H Pulse Rhythm [Right Finger] Regular Pulse Strength [Right Finger] Normal Respiratory Rate 17 16 18 Respiratory Effort / Characteristics Non-Labored Respiratory Depth Normal Respiratory Pattern Regular Blood Pressure 138/106 H 127/94 Blood Pressure [Right Arm] 127/94 Blood Pressure Mean 116 105 Blood Pressure Mean [Right Arm] 105 Blood Pressure Position [Right Arm] Lying Pulse Oximetry 98 99 97 Oxygen Delivery Method Fraction of Inspired Oxygen 07/12/19 03:00 07/12/19 03:01 07/12/19 03:02 Temperature Temperature Source Sepsis Recent Fever Within 48 Hours Sepsis New/Unexplained Change in Mental Status Sepsis Action Taken by Nursing Pulse Rate 143 H 141 H 142 H Pulse Rate [Right Finger] Pulse Rate from SpO2 Sensor 143 H 141 H Pulse Rhythm [Right Finger] Pulse Strength [Right Finger] Respiratory Rate 16 16 14 Respiratory Effort / Characteristics Non-Labored Spontaneous Respiratory Depth Normal Respiratory Pattern Regular Blood Pressure 127/91 Blood Pressure [Right Arm] Blood Pressure Mean 103 Blood Pressure Mean [Right Arm] Blood Pressure Position [Right Arm] Pulse Oximetry 95 98 98 Oxygen Delivery Method Fraction of Inspired Oxygen 40 07/12/19 03:30 07/12/19 04:00 07/12/19 04:12 Temperature Temperature Source Sepsis Recent Fever Within 48 Hours Sepsis New/Unexplained Change in Mental Status Sepsis Action Taken by Nursing Pulse Rate 130 H 124 H Pulse Rate [Right Finger] Pulse Rate from SpO2 Sensor 131 H 124 H Pulse Rhythm [Right Finger] Pulse Strength [Right Finger] Respiratory Rate 13 13 Respiratory Effort / Characteristics Respiratory Depth Respiratory Pattern Blood Pressure 101/86 139/94 141/82 H Blood Pressure [Right Arm] Blood Pressure Mean 91 109 101 Blood Pressure Mean [Right Arm] Blood Pressure Position [Right Arm] Pulse Oximetry 99 93 Oxygen Delivery Method Fraction of Inspired Oxygen 07/12/19 04:25 07/12/19 04:30 07/12/19 04:31 Temperature Temperature Source Sepsis Recent Fever Within 48 Hours Sepsis New/Unexplained Change in Mental Status Sepsis Action Taken by Nursing Pulse Rate 120 H 119 H Pulse Rate [Right Finger] 119 H Pulse Rate from SpO2 Sensor 119 H 118 H Pulse Rhythm [Right Finger] Regular Pulse Strength [Right Finger] Normal Respiratory Rate 16 21 18 Respiratory Effort / Characteristics Non-Labored Respiratory Depth Normal Respiratory Pattern Regular Blood Pressure 115/71 Blood Pressure [Right Arm] 141/82 H Blood Pressure Mean 85 Blood Pressure Mean [Right Arm] 101 Blood Pressure Position [Right Arm] Lying Pulse Oximetry 94 89 L 91 Oxygen Delivery Method Room Air Fraction of Inspired Oxygen 07/12/19 05:00 07/12/19 05:01 07/12/19 05:30 Temperature Temperature Source Sepsis Recent Fever Within 48 Hours Sepsis New/Unexplained Change in Mental Status Sepsis Action Taken by Nursing Pulse Rate 113 H 114 H 117 H Pulse Rate [Right Finger] 122 H Pulse Rate from SpO2 Sensor 113 H 115 H 117 H Pulse Rhythm [Right Finger] Regular Pulse Strength [Right Finger] Normal Respiratory Rate 23 24 23 Respiratory Effort / Characteristics Non-Labored Respiratory Depth Normal Respiratory Pattern Regular Blood Pressure 109/64 113/68 Blood Pressure [Right Arm] 122/84 Blood Pressure Mean 79 83 Blood Pressure Mean [Right Arm] 96 Blood Pressure Position [Right Arm] Lying Pulse Oximetry 90 91 91 Oxygen Delivery Method BiPAP Fraction of Inspired Oxygen 07/12/19 05:31 07/12/19 05:40 07/12/19 06:00 Temperature Temperature Source Sepsis Recent Fever Within 48 Hours Sepsis New/Unexplained Change in Mental Status Sepsis Action Taken by Nursing Pulse Rate 113 H 128 H Pulse Rate [Right Finger] 118 H Pulse Rate from SpO2 Sensor 114 H 128 H Pulse Rhythm [Right Finger] Pulse Strength [Right Finger] Respiratory Rate 23 24 24 Respiratory Effort / Characteristics Non-Labored Respiratory Depth Respiratory Pattern Blood Pressure Blood Pressure [Right Arm] Blood Pressure Mean Blood Pressure Mean [Right Arm] Blood Pressure Position [Right Arm] Pulse Oximetry 92 92 95 Oxygen Delivery Method Room Air Fraction of Inspired Oxygen 07/12/19 06:10 07/12/19 06:30 07/12/19 06:35 Temperature Temperature Source Sepsis Recent Fever Within 48 Hours Sepsis New/Unexplained Change in Mental Status Sepsis Action Taken by Nursing Pulse Rate 124 H 122 H Pulse Rate [Right Finger] 122 H Pulse Rate from SpO2 Sensor 124 H Pulse Rhythm [Right Finger] Pulse Strength [Right Finger] Respiratory Rate 15 14 15 Respiratory Effort / Characteristics Non-Labored Spontaneous Non-Labored Spontaneous Respiratory Depth Normal Respiratory Pattern Regular Blood Pressure Blood Pressure [Right Arm] Blood Pressure Mean Blood Pressure Mean [Right Arm] Blood Pressure Position [Right Arm] Pulse Oximetry 99 98 100 Oxygen Delivery Method BiPAP Fraction of Inspired Oxygen 40 40 07/12/19 06:38 07/12/19 06:39 07/12/19 07:00 Temperature Temperature Source Sepsis Recent Fever Within 48 Hours Sepsis New/Unexplained Change in Mental Status Sepsis Action Taken by Nursing Pulse Rate 119 H 123 H Pulse Rate [Right Finger] 120 H Pulse Rate from SpO2 Sensor 120 H 123 H Pulse Rhythm [Right Finger] Regular Pulse Strength [Right Finger] Normal Respiratory Rate 15 16 18 Respiratory Effort / Characteristics Non-Labored Respiratory Depth Normal Respiratory Pattern Regular Blood Pressure 122/83 124/72 Blood Pressure [Right Arm] 122/83 Blood Pressure Mean 96 89 Blood Pressure Mean [Right Arm] 96 Blood Pressure Position [Right Arm] Lying Pulse Oximetry 99 99 97 Oxygen Delivery Method BiPAP Fraction of Inspired Oxygen 07/12/19 07:01 Temperature Temperature Source Sepsis Recent Fever Within 48 Hours Sepsis New/Unexplained Change in Mental Status Sepsis Action Taken by Nursing Pulse Rate 126 H Pulse Rate [Right Finger] Pulse Rate from SpO2 Sensor 121 H Pulse Rhythm [Right Finger] Pulse Strength [Right Finger] Respiratory Rate 19 Respiratory Effort / Characteristics Respiratory Depth Respiratory Pattern Blood Pressure Blood Pressure [Right Arm] Blood Pressure Mean Blood Pressure Mean [Right Arm] Blood Pressure Position [Right Arm] Pulse Oximetry 99 Oxygen Delivery Method Fraction of Inspired Oxygen GENERAL: Uncomfortable appearing, increased work of breathing, moderate distress, speaks in short phrases. EYE EXAM: normal conjunctiva, PERRL and EOM's grossly intact OROPHARYNX: no exudate, no erythema, lips, buccal mucosa, and tongue normal and mucous membranes are moist NECK: supple, no nuchal rigidity, no adenopathy, non-tender LUNGS: Bilateral expiratory wheeze, tachypnea, no retractions. HEART: no murmurs, S1 normal and S2 normal ABDOMEN: abdomen soft, non-tender, normo-active bowel sounds, no masses, no rebound or guarding. BACK: Back is symmetrical on inspection and there is no deformity, no midline tenderness, no CVA tenderness. SKIN: no rashes and no bruising UPPER EXTREMITIES: upper extremities are grossly normal. FROM, nml pulses b/l. LOWER EXTREMITIES: No pitting edema. FROM, nml pulses b/l. NEURO EXAM: Normal sensorium, cranial nerves II-XII grossly intact, normal speech, no gross weakness of arms, no gross weakness of legs. Course 0133: The patient was evaluated in room A2. A complete history and physical exam was performed. 0243: The patient states that it is still really heard to breath. The patient still has persistent wheezes. Patient was started on Bipap. Nebs given through the BiPAP. 0347: I re-checked the patient. She appears improved and is asking to have the BiPAP removed. 0443: The patient states that it is really hard to breath again. She was placed on Bipap again. 0637: The patient is improving on Bipap. An additional hour-long nebulizer was given. 0745: I reviewed the patient's case with Dr. Dumont, [facility] Hospitalist. He will evaluate the patient for further management. Administered Medications Discontinued Medications Albuterol (Duoneb) 12 ml NEB ONE ONE Stop: 07/12/19 01:35 Last Admin: 07/12/19 01:42 Dose: 12 ml Documented by: [id number] Albuterol (Duoneb) 3 ml NEB NOW STA Stop: 07/12/19 05:27 Last Admin: 07/12/19 05:38 Dose: 3 ml Documented by: [id number] Albuterol (Duoneb) 12 ml NEB ONE ONE Stop: 07/12/19 06:09 Last Admin: 07/12/19 06:30 Dose: 12 ml Documented by: [id number] Albuterol (Duoneb) 3 ml NEB Q4R BHAVANI Stop: 08/11/19 10:59 Last Admin: 07/13/19 07:12 Dose: 3 ml Documented by: [id number] Admin: 07/13/19 03:07 Dose: 3 ml Documented by: [id number] Admin: 07/12/19 23:11 Dose: 3 ml Documented by: [id number] Admin: 07/12/19 19:33 Dose: 3 ml Documented by: [id number] Admin: 07/12/19 15:25 Dose: 3 ml Documented by: [id number] Admin: 07/12/19 10:54 Dose: 3 ml Documented by: [id number] Albuterol (Duoneb) 3 ml NEB 1300 ONE Stop: 07/13/19 13:01 Last Admin: 07/13/19 13:24 Dose: 3 ml Documented by: [id number] Benzonatate (Tessalon Perle) 100 mg PO TID BHAVANI Stop: 08/11/19 20:59 Last Admin: 07/13/19 13:49 Dose: Not Given Documented by: [id number] Admin: 07/13/19 08:29 Dose: Not Given Documented by: [id number] Admin: 07/12/19 21:01 Dose: Not Given Documented by: [id number] Benzonatate (Tessalon Perle) 100 mg PO NOW ONE Stop: 07/12/19 20:13 Last Admin: 07/12/19 20:52 Dose: 100 mg Documented by: [id number] Clonazepam (Klonopin) 1 mg PO HS BHAVANI Stop: 08/11/19 20:59 Last Admin: 07/12/19 20:51 Dose: 1 mg Documented by: [id number] Duloxetine HCl (Cymbalta) 30 mg PO DAILY BHAVANI Stop: 08/11/19 08:59 Last Admin: 07/13/19 08:07 Dose: 30 mg Documented by: [id number] Admin: 07/12/19 11:21 Dose: 30 mg Documented by: [id number] Duloxetine HCl (Cymbalta) 60 mg PO DAILY BHAVANI Stop: 08/11/19 08:59 Last Admin: 07/13/19 08:07 Dose: 60 mg Documented by: [id number] Admin: 07/12/19 11:21 Dose: 60 mg Documented by: [id number] Fluticasone Propionate (Flonase) 1 - 2 sprays NA BID BHAVANI Stop: 08/11/19 22:29 Last Admin: 07/13/19 08:08 Dose: 2 sprays Documented by: [id number] Admin: 07/12/19 22:52 Dose: 1 sprays Documented by: [id number] Guaifenesin (Mucinex) 600 mg PO NOW STA Stop: 07/12/19 20:11 Last Admin: 07/12/19 20:52 Dose: 600 mg Documented by: [id number] Guaifenesin (Mucinex) 600 mg PO Q12 BHAVANI Stop: 08/12/19 08:59 Last Admin: 07/13/19 08:29 Dose: Not Given Documented by: [id number] Magnesium Sulfate/Dextrose (Magnesium Sulfate / D5w) 1 gm in 100 mls @ 100 mls/hr IV ONE ONE Stop: 07/12/19 02:33 Last Infusion: 07/12/19 02:48 Dose: 0 mls/hr Documented by: [id number] Admin: 07/12/19 01:44 Dose: 100 mls/hr Documented by: [id number] Lorazepam (Ativan) 0.25 mg in 0.5 mls @ 0.5 mls/min IV NOW STA Stop: 07/12/19 02:07 Last Admin: 07/12/19 02:14 Dose: 0.5 mls/min Documented by: [id number] Sodium Chloride (Nss 1000ml) 1,000 mls @ 125 mls/hr IV .Q8H BHAVANI Stop: 08/11/19 02:14 Last Infusion: 07/12/19 09:54 Dose: 0 mls/hr Documented by: [id number] Admin: 07/12/19 02:14 Dose: 125 mls/hr Documented by: [id number] Methylprednisolone 40 mg/ (Syringe) 0.64 mls @ 1.5 mls/min IV Q12H BHAVANI Stop: 08/11/19 13:59 Last Admin: 07/13/19 13:48 Dose: 1.5 mls/min Documented by: [id number] Admin: 07/13/19 02:32 Dose: 1.5 mls/min Documented by: [id number] Admin: 07/12/19 13:22 Dose: 1.5 mls/min Documented by: [id number] Loratadine (Claritin) 10 mg PO DAILY BHAVANI Stop: 08/11/19 08:59 Last Admin: 07/13/19 08:07 Dose: 10 mg Documented by: [id number] Admin: 07/12/19 11:22 Dose: 10 mg Documented by: [id number] Methylprednisolone (Solumedrol) 60 mg IV NOW STA Stop: 07/12/19 01:35 Last Admin: 07/12/19 01:44 Dose: 60 mg Documented by: [id number] Nicotine (Nicoderm Cq) 14 mg TD QAM BHAVANI Stop: 08/11/19 08:59 Last Admin: 07/12/19 11:34 Dose: Not Given Documented by: [id number] Oxybutynin Chloride (Ditropan) 5 mg PO BID BHAVANI Stop: 08/11/19 08:59 Last Admin: 07/13/19 08:07 Dose: 5 mg Documented by: [id number] Admin: 07/12/19 20:52 Dose: 5 mg Documented by: [id number] Admin: 07/12/19 11:21 Dose: 5 mg Documented by: [id number] Risperidone (Risperdal) 2 mg PO HS BHAVANI Stop: 08/11/19 20:59 Last Admin: 07/12/19 20:53 Dose: 2 mg Documented by: [id number] Fluticasone/Salmeterol (Advair Diskus 250/50) 1 puffs INH BID BHAVANI Stop: 08/11/19 08:59 Last Admin: 07/13/19 08:08 Dose: 1 puffs Documented by: [id number] Admin: 07/12/19 20:52 Dose: 1 puffs Documented by: [id number] Admin: 07/12/19 11:22 Dose: 1 puffs Documented by: [id number] Medical Decision Making Differential Diagnosis Differential diagnoses includes but is not limited to pneumonia, bronchitis, COPD/Asthma exacerbation, pneumothorax, pulmonary embolism, congestive heart failure, acute coronary syndrome Medical Records Attestation: I reviewed the patient's medical records. Home Medications Current Medication List: was personally reviewed by me Laboratory Data Attestation: I reviewed the patient's lab results. Result diagrams: 07/13/19 05:31 07/13/19 05:31 Lab Results 07/12/19 07/12/19 07/12/19 Range/Units 01:31 01:31 01:31 WBC 13.23 H (4.8-10.8) K/uL RBC 4.02 L (4.2-5.4) M/uL Hgb 12.6 (12.0-16.0) g/dL Hct 38.3 (37-47) % MCV 95.3 (80-100) fL MCH 31.3 (25-34) pg MCHC 32.9 (32-36) g/dL RDW Std Deviation 43.8 (36.4-46.3) fL RDW Coeff of Chelita 12.7 (11.5-14.5) % Plt Count 398 (130-400) K/uL MPV 10.8 H (7.4-10.4) fL Neutrophils % (Manual) 50.0 % Lymphocytes % (Manual) 36.0 % Monocytes % (Manual) 6.1 % Eosinophils % (Manual) 6.1 % Basophils % (Manual) 1.8 % Neutrophils # (Manual) 6.62 H (1.4-6.5) K/uL Total Absolute Neuts 6.62 H (1.4-6.5) K/uL Lymphocytes # (Manual) 4.76 H (1.2-3.4) K/uL Total Abs Lymphocytes 4.76 H (1.2-3.4) K/uL Monocytes # (Manual) 0.81 H (0.11-0.59) K/uL Eosinophils # (Manual) 0.81 H (0-0.5) K/uL Basophils # (Manual) 0.24 H (0-0.2) K/uL D-Dimer 220 (0-500) ug/L FEU Sodium 139 (136-145) mmol/L Potassium 3.4 L (3.5-5.1) mmol/L Chloride 109 H (98-107) mmol/L Carbon Dioxide 23 (21-32) mmol/L Anion Gap 7.0 (3-11) BUN 7 (7-18) mg/dl Creatinine 0.88 (0.6-1.2) mg/dl Est Cr Clr Drug Dosing 89.5 ml/min Est GFR ( Amer) 99.4 Est GFR (Non-Af Amer) 85.7 BUN/Creatinine Ratio 8.2 L (10-20) Glucose 100 H (70-99) mg/dl Calcium 8.4 L (8.5-10.1) mg/dl Total Bilirubin 0.2 (0.2-1) mg/dl AST 7 L (15-37) U/L ALT 14 (12-78) U/L Alkaline Phosphatase 114 (45-117) U/L Troponin I < 0.015 (0-0.045) ng/ml Total Protein 7.0 (6.4-8.2) gm/dl Albumin 3.2 L (3.4-5.0) gm/dl Globulin 3.8 (2.5-4.0) gm/dl Albumin/Globulin Ratio 0.8 L (0.9-2) Imaging Data Attestation: I personally reviewed and interpreted this imaging study as follows: My Impression: Chest X-ray: no cardiomegaly, no effusions, no wide mediastinum, no focal consolidation, no acute pulmonary edema. ECG Data Attestation: I personally reviewed and interpreted this ECG as follows: Indication: SOB/dyspnea Rate (beats per minute): 110 Rhythm: sinus tachycardia Findings: + other (normal aixs, normal intervals, baseline artifact noted); no acute ischemic change Blood Pressure Blood Pressure Findings: Elevated blood pressure Blood Pressure Disposition: elevated BP felt to be situational MDM Narrative Patient with obvious difficulty breathing on presentation and prior history of asthma. Patient is tried multiple nebulized treatments at home without any reli ef. Due to significant distress and work of breathing, patient was placed on BiPAP and nebulizers given through the BiPAP machine all additional medication was given IV and patient placed on a monitor. After proximally 90 minutes patient felt markedly improved and asked to come off the BiPAP. She was monitored off of the BiPAP for approximately another hour, however began to have increased trouble breathing again and subsequently ended up back on BiPAP with a second hour-long nebulizer given. At this time I discussed with patient additional inpatient evaluation and treatment to the persistence of her severe symptoms. No other evidence of pneumonia or effusion, I do not suspect occult cardiac etiology, I do not suspect PE. No other evidence to suggest bacteremia/sepsis. Mild leukocytosis likely secondary to increased work of breathing. Patient was given IV steroids and magnesium as well as additional IV fluids. Patient was made aware of all results and was in agreement with plan. Case discussed with hospitalist for additional evaluation. Impression & Plan Dyspnea, Asthma exacerbation, Tachycardia Critical Care Time Critical Care Time: Yes Total Critical Care Time: 45 I have personally spent 45 minutes of critical care time in the direct management of this patient. This includes bedside care, interpretation of jocelynn gnostic studies, and testing, discussion with consultants, patient, and family members, and other required patient management activities. This 45 minutes is in excess of all separately billable procedures. Discharge Plan Visit Data *Final* Discharge Date/Time: 07/12/19 08:10 Chief Complaint: Asthma Stated Complaint: ASHTHMA ATTACK ED Provider: Lashawn José Discharge Problem: Dyspnea, Asthma exacerbation, Tachycardia Patient Disposition: Admitted As Inpatient Discharge Instructions Interventions: ED Discharge Assessment Last Done: 07/12/19 08:10 Discharge Problem: Dyspnea Qualifiers: Dyspnea type: unspecified Qualified Code(s): R06.00 - Dyspnea, unspecified Asthma exacerbation Qualifiers: Asthma severity: unspecified severity Asthma persistence: persistent Qualified Code(s): J45.901 - Unspecified asthma with (acute) exacerbation The scribe's documentation has been prepared under my direction and personally reviewed by me in its entirety. I confirm that the note above accurately reflects all work, treatment, procedures, and medical decision making performed by me.
== END 2019-07-13 14:17 | disposition home or self-care (01) | DRG 203 ==
LOC: ED 01:17 → 2E 07:45